=== PATIENT | female | born 1960 | race Caucasian/White ===

== ENCOUNTER 2017-04-09 10:00 | Emergency (ER) | payer MEDICAID ==
[~2017-04-09] VITALS: Ht 152.4 cm; Wt 77.3 kg
[2017-04-09] MEDS ORDERED: PERTUSS(ACELL),DIPH,TET VAC/PF 0.5 ML VIAL IM ONE (12:45)
[2017-04-09] MEDS ORDERED: LIDOCAINE HCL 1% 20 ML VIAL INJ ONE (12:45)
[2017-04-09] MEDS ORDERED: POVIDONE-IODINE 10% 15 ML SOLUTION UD TP ONE (12:45)
[2017-04-09] MEDS ORDERED: HYDROCODONE/ACETAMINOPHEN 5-325 MG TABLET PO ONE (12:45)
[2017-04-09] MEDS ORDERED: LIDOCAINE HCL 1% 10 ML VIAL INJ ONE (12:45)
[2017-04-09 15:29] VITALS: BP 132/61
== END 2017-04-09 15:48 | disposition home or self-care (01) ==
LOC: EMS 10:05
DX: S61.411A Laceration without foreign body of right hand, initial encounter (principal); S51.812A Laceration without foreign body of left forearm, initial encounter; Z88.0 Allergy status to penicillin; W54.0XXA Bitten by dog, initial encounter; Y93.89 Activity, other specified; Y92.89 Other specified places as the place of occurrence of the external cause; Y99.8 Other external cause status
CPT/HCPCS: 12004; 73130; 90471; 90715; 99284; J3490